=== PATIENT | male | born 1990 | race Two or more races ===

== ENCOUNTER → 2017-07-29 11:26 | Outpatient (CLI) | payer OTHER | END | disposition home or self-care (01) | LOC: LAB 11:26 | DX: J11.1 Influenza due to unidentified influenza virus with other respiratory manifestations (principal) ==

== ENCOUNTER → 2017-07-29 | Outpatient (CLI) | payer OTHER ==
[~2017-07-29] VITALS: Ht 152.4 cm; Wt 117.9 kg
[~2017-07-29] MED LIST: AFRIN SPRAY15 ML NS; AYR SALINE NA14.1 GM NASAL; CEFUROXIME500 MG PO; LEVSIN0.125 MG PO; OMEPRAZOLE20 MG PO; PREVACID30 MG PO; ZANTAC 7575 MG PO; ZANTAC300 MG PO
== END | disposition home or self-care (01) ==
LOC: PPHC 08:44
DX: R09.81 Nasal congestion (principal); J02.8 Acute pharyngitis due to other specified organisms; R51 Headache; R05 Cough

== ENCOUNTER 2017-07-31 08:30 | Outpatient (CLI) | payer OTHER | END 2017-07-31 08:37 | disposition home or self-care (01) | LOC: LAB 08:30 | DX: R50.9 Fever, unspecified (principal) ==

== ENCOUNTER → 2017-07-31 | Outpatient (CLI) | payer OTHER ==
[~2017-07-31] VITALS: Ht 152.4 cm; Wt 117.9 kg
== END | disposition home or self-care (01) ==
LOC: PPHC 09:22
DX: R05 Cough (principal)

== ENCOUNTER 2018-06-06 07:06 | Outpatient (CLI) | payer OTHER | END 2018-06-06 08:35 | disposition home or self-care (01) | LOC: LAB 07:06 | DX: Z01.818 Encounter for other preprocedural examination (principal); K81.1 Chronic cholecystitis ==

== ENCOUNTER 2018-07-01 06:37 | Day surgery (SDC) | payer OTHER ==
[2018-07-01] MEDS ORDERED: ULTRACET PO (13:02)
== END 2018-07-01 17:50 | disposition home or self-care (01) ==
LOC: CIR.AMB 06:37
DX: K80.10 Calculus of gallbladder with chronic cholecystitis without obstruction (principal)

== ENCOUNTER 2018-08-10 17:55 | Outpatient (CLI) | payer OTHER ==
[~2018-08-10 17:55] MED LIST changes: +ULTRACET PO
== END 2018-08-10 18:01 | disposition home or self-care (01) ==
LOC: LAB 17:55
DX: J10.00 Influenza due to other identified influenza virus with unspecified type of pneumonia (principal)

== ENCOUNTER 2019-06-20 21:30 | Emergency (ER) | payer OTHER ==
[~2019-06-20] VITALS: Ht 167.6 cm; Wt 127.0 kg
[2019-06-21] MEDS ORDERED: INTESTINEX680 M1 PO (05:01)
[2019-06-21] MEDS ORDERED: ZOFRAN8 MG PO (05:01)
[2019-06-21] MEDS ORDERED: PEPCID40 MG PO (05:01)
== END 2019-06-21 05:02 ==
LOC: ER 21:30
DX: K52.89 Other specified noninfective gastroenteritis and colitis (principal)

== ENCOUNTER → 2019-10-19 14:03 | Outpatient (CLI) | payer OTHER ==
[~2019-10-19 14:03] MED LIST changes: +INTESTINEX680 M1 PO; +PEPCID40 MG PO; +ZOFRAN8 MG PO
== END | disposition home or self-care (01) ==
LOC: RAD 14:03
DX: M79.671 Pain in right foot (principal)

== ENCOUNTER 2019-12-06 13:21 | Outpatient (CLI) | payer OTHER ==
[~2019-12-06] VITALS: Ht 152.4 cm; Wt 117.9 kg
== END 2019-12-06 14:30 | disposition home or self-care (01) ==
LOC: OFIC 805 13:21
PROVIDERS: ATTEND Otolaryngology
DX: J30.89 Other allergic rhinitis (principal); G47.33 Obstructive sleep apnea (adult) (pediatric)

== ENCOUNTER 2020-03-09 09:22 | Outpatient (CLI) | payer OTHER | END 2020-03-09 15:45 | disposition home or self-care (01) | LOC: PPH VACUNA 09:22 → LAB 09:22 | DX: Z23 Encounter for immunization (principal) ==

== ENCOUNTER → 2020-03-24 09:49 | Outpatient (CLI) | payer OTHER | END | disposition home or self-care (01) | LOC: RAD 09:49 → LAB 09:49 | PROVIDERS: ATTEND Internal Medicine Cardiovascular Disease | DX: I10 Essential (primary) hypertension (principal) ==

== ENCOUNTER → 2020-03-27 08:05 | Outpatient (CLI) | payer OTHER | END | disposition home or self-care (01) | LOC: LAB 08:05 | PROVIDERS: ATTEND Internal Medicine Cardiovascular Disease | DX: E03.8 Other specified hypothyroidism (principal); I10 Essential (primary) hypertension; E11.9 Type 2 diabetes mellitus without complications; Z20.828 Contact with and (suspected) exposure to other viral communicable diseases; E78.00 Pure hypercholesterolemia, unspecified; E78.01 Familial hypercholesterolemia ==

== ENCOUNTER 2020-06-27 09:12 | Emergency (ER) | payer OTHER ==
[~2020-06-27] VITALS: Ht 165.1 cm; Wt 136.1 kg
== END 2020-06-27 10:06 | disposition home or self-care (01) ==
LOC: ER 09:12
DX: L02.415 Cutaneous abscess of right lower limb (principal); B95.61 Methicillin susceptible Staphylococcus aureus infection as the cause of diseases classified elsewhere

== ENCOUNTER 2020-08-15 09:44 | Emergency (ER) | payer OTHER ==
[~2020-08-15] VITALS: Ht 167.6 cm; Wt 137.9 kg
[2020-08-15] MEDS ORDERED: KETO10TA2 PO (13:52)
[2020-08-15] MEDS ORDERED: ZANAFLEX4 M1 PO (13:52)
== END 2020-08-15 14:00 | disposition home or self-care (01) ==
LOC: ER 09:44
DX: R51.9 Headache, unspecified (principal); M54.2 Cervicalgia; Z03.818 Encounter for observation for suspected exposure to other biological agents ruled out

== ENCOUNTER → 2020-10-20 | Outpatient (CLI) | payer OTHER ==
[~2020-10-20] MED LIST changes: +KETO10TA2 PO; +ZANAFLEX4 M1 PO
== END | disposition home or self-care (01) ==
LOC: TOM 15:55
PROVIDERS: ATTEND Internal Medicine Cardiovascular Disease
DX: J32.8 Other chronic sinusitis (principal); G47.33 Obstructive sleep apnea (adult) (pediatric)

== ENCOUNTER 2020-10-21 10:25 | Outpatient (CLI) | payer OTHER | END 2020-10-21 10:27 | disposition home or self-care (01) | LOC: LAB 10:25 | PROVIDERS: ATTEND Internal Medicine Cardiovascular Disease | DX: I10 Essential (primary) hypertension (principal); E11.9 Type 2 diabetes mellitus without complications; E03.8 Other specified hypothyroidism; E78.2 Mixed hyperlipidemia; E55.9 Vitamin D deficiency, unspecified ==

== ENCOUNTER 2021-01-18 09:04 | Emergency (ER) | payer OTHER ==
[~2021-01-18] VITALS: Ht 167.6 cm; Wt 139.7 kg
[2021-01-18] MEDS ORDERED: KETO10TA2 PO (10:22)
[2021-01-18] MEDS ORDERED: CYCLOBENZAPRINE10 MG PO (10:22)
== END 2021-01-18 10:27 ==
LOC: ER 09:04 → EDBD 09:07 → EDSEX 09:07 → ER 10:27
DX: M54.16 Radiculopathy, lumbar region (principal)

== ENCOUNTER → 2021-01-29 09:02 | Outpatient (CLI) | payer OTHER ==
[~2021-01-29 09:02] MED LIST changes: +CYCLOBENZAPRINE10 MG PO
== END | disposition home or self-care (01) ==
LOC: EDSEX 09:02 → EDBD 09:02 → LAB 09:02
PROVIDERS: ATTEND General Practice
DX: Z11.3 Encounter for screening for infections with a predominantly sexual mode of transmission (principal)

== ENCOUNTER 2021-03-19 08:00 | Outpatient (CLI) | payer OTHER | END 2021-03-19 08:30 | disposition home or self-care (01) | LOC: PPH VACUNA 08:00 | PROVIDERS: ATTEND Emergency Medicine Pediatric Emergency Medicine | DX: Z23 Encounter for immunization (principal) ==

== ENCOUNTER 2021-12-12 15:09 | Outpatient (CLI) | payer OTHER | END 2021-12-12 15:18 | disposition home or self-care (01) | LOC: LAB 15:09 | PROVIDERS: ATTEND Emergency Medicine Pediatric Emergency Medicine | DX: L02.91 Cutaneous abscess, unspecified (principal) ==

== ENCOUNTER 2022-03-13 08:00 | Outpatient (CLI) | payer OTHER | END 2022-03-13 08:05 | disposition home or self-care (01) | LOC: PPH VACUNA 08:00 | PROVIDERS: ATTEND Emergency Medicine Pediatric Emergency Medicine | DX: Z23 Encounter for immunization (principal) ==

== ENCOUNTER 2022-04-15 03:00 | Emergency (ER) | payer OTHER ==
[~2022-04-15] VITALS: Ht 162.6 cm; Wt 122.9 kg
[2022-04-15] MEDS ORDERED: DOLOGESIC-DF 51 EACH PO (07:20)
[2022-04-15] MEDS ORDERED: ZYNCOF 20-400120 ML PO (07:20)
== END 2022-04-15 07:32 ==
LOC: ER 03:00
DX: U07.1 COVID-19 (principal); E11.9 Type 2 diabetes mellitus without complications

== ENCOUNTER 2022-06-25 09:30 | Emergency (ER) | payer OTHER ==
[~2022-06-25] VITALS: Ht 162.6 cm; Wt 121.6 kg
[~2022-06-25 09:30] MED LIST changes: +DOLOGESIC-DF 51 EACH PO; +JANUMET 50-1,01 EACH PO; +ZYNCOF 20-400120 ML PO
== END 2022-06-25 10:33 | disposition home or self-care (01) ==
LOC: ER 09:30
DX: H00.011 Hordeolum externum right upper eyelid (principal)

== ENCOUNTER 2023-02-20 07:28 | Outpatient (CLI) | payer OTHER | END 2023-02-20 07:31 | disposition home or self-care (01) | LOC: LAB 07:28 | PROVIDERS: ATTEND Internal Medicine Cardiovascular Disease | DX: J11.1 Influenza due to unidentified influenza virus with other respiratory manifestations (principal); A49.3 Mycoplasma infection, unspecified site; Z20.822 Contact with and (suspected) exposure to COVID-19 ==

== ENCOUNTER 2023-03-14 14:45 | Outpatient (CLI) | payer OTHER | END 2023-03-14 14:55 | disposition home or self-care (01) | LOC: PPH VACUNA 14:45 | PROVIDERS: ATTEND Emergency Medicine Pediatric Emergency Medicine | DX: Z23 Encounter for immunization (principal) | CPT/HCPCS: 90686; G0008 ==

== ENCOUNTER 2023-04-30 09:13 | Outpatient (CLI) | payer OTHER ==
[2023-04-30 09:50] LABS: HEMATOCRIT 41.4 % (39.0-48.0); HEMOGLOBIN 14.6 g/dL (13-16.00); MEAN CELL VOLUME 81.8 fL (80.0-100.00); MEAN CORPUSCULAR HEMOGLOBIN 28.8 pg (27.00-32.0); MEAN CORPUSCULAR HGB CONC 35.2 g/dl (32.0-36.0); PLATELET COUNT 162 K/uL (150-450); RED BLOOD COUNT 5.06 M/uL (4.00-6.00); RED CELL DISTRIBUTION WIDTH 13.7 % (11.5-14.5)
[2023-04-30 10:37] LABS: MANUAL PLATELET COUNT 214
[2023-04-30 11:07] LABS: MYCOPLASMA PNEUMONIAE IGM NON REACTIVE (NO REACTIVE)
== END 2023-04-30 09:22 | disposition home or self-care (01) ==
LOC: LAB 09:13
PROVIDERS: ATTEND Internal Medicine Cardiovascular Disease
DX: A49.3 Mycoplasma infection, unspecified site (principal); Z20.822 Contact with and (suspected) exposure to COVID-19

== ENCOUNTER 2023-05-19 07:17 | Emergency (ER) | payer OTHER ==
[~2023-05-19] VITALS: Ht 162.6 cm; Wt 127.0 kg
== END 2023-05-19 11:23 | disposition home or self-care (01) ==
LOC: ER 07:17
DX: N45.4 Abscess of epididymis or testis (principal)

== ENCOUNTER 2023-05-19 13:45 | Outpatient (CLI) | payer OTHER | END 2023-05-19 14:18 | disposition home or self-care (01) | LOC: LAB 13:45 | PROVIDERS: ATTEND Specialist | DX: L02.91 Cutaneous abscess, unspecified (principal) ==

== ENCOUNTER 2023-07-01 09:47 | Outpatient (CLI) | payer OTHER ==
[2023-07-01 10:56] LABS: PH,URINE 5.5 (5.0-8.0); URINE APPEARANCE Clear; URINE BILIRRUBIN Negative (NEGATIVE); URINE BLOOD Negative; URINE COLOR Yellow; URINE LEUKOCYTE Negative; URINE NITRATE Negative
[2023-07-01 11:01] LABS: URINE BACTERIA 51.6 uL (0.0-1933); URINE EPITHELIAL CELLS 8.6 uL (0.0-38.8); URINE WBC 7.5 uL (0.0-23.2)
[2023-07-01 11:08] LABS: HEMATOCRIT 44.1 % (39.0-48.0); HEMOGLOBIN 15.4 g/dL (13-16.00); MEAN CELL VOLUME 83.3 fL (80.0-100.00); MEAN CORPUSCULAR HEMOGLOBIN 29.1 pg (27.00-32.0); MEAN CORPUSCULAR HGB CONC 34.9 g/dl (32.0-36.0); PLATELET COUNT 162 K/uL (150-450); RED BLOOD COUNT 5.29 M/uL (4.00-6.00); RED CELL DISTRIBUTION WIDTH 13.3 % (11.5-14.5)
[2023-07-01 11:45] LABS: URINE GLUCOSE >=1000 MG/DL (NEGATIVE); URINE PROTEIN 100 (NEGATIVE); URINE RBC 1.5 uL (0.0-20.8)
[2023-07-01 11:51] LABS: ALBUMIN 3.5 gm/dL (3.4-5.0); BILIRUBIN TOTAL 0.61 mg/dL (0.3-1.2); CALCIUM 8.9 mg/dL (8.5-10.1); CHOL HDL RATIO 6.1 (0-5.0); CREATININE SERUM 0.94 mg/dL (0.70-1.30); POTASSIUM 3.99 mEq/L (3.5-5.1); T4 TOTAL 9.62 UG/DL (4.5-12.1); TOTAL PROTEIN 7.5 gm/dL (6.4-8.2); TSH 2.65 uIU/mL (0.358-3.74)
== END 2023-07-01 10:35 | disposition home or self-care (01) ==
LOC: LAB 09:47
PROVIDERS: ATTEND Internal Medicine Cardiovascular Disease
DX: I10 Essential (primary) hypertension (principal); E11.9 Type 2 diabetes mellitus without complications; E03.9 Hypothyroidism, unspecified; E78.2 Mixed hyperlipidemia; R10.9 Unspecified abdominal pain

== ENCOUNTER 2023-07-01 10:08 | Outpatient (CLI) | payer OTHER | END 2023-07-01 10:13 | disposition home or self-care (01) | LOC: SONOGRAMA 10:08 | PROVIDERS: ATTEND Internal Medicine Cardiovascular Disease | DX: R10.9 Unspecified abdominal pain (principal) ==

== ENCOUNTER 2024-03-15 09:43 | Outpatient (CLI) | payer OTHER | END 2024-03-15 23:00 | disposition home or self-care (01) | LOC: LAB 09:43 | DX: A64 Unspecified sexually transmitted disease (principal) ==

== ENCOUNTER 2024-06-18 11:08 | Outpatient (CLI) | payer OTHER | END 2024-06-18 11:15 | disposition home or self-care (01) | LOC: LAB 11:08 | PROVIDERS: ATTEND Specialist | DX: L02.91 Cutaneous abscess, unspecified (principal) ==

== ENCOUNTER 2024-12-08 14:55 | Outpatient (CLI) | payer OTHER | END 2024-12-08 15:07 | disposition home or self-care (01) | LOC: RAD 14:55 | PROVIDERS: ATTEND Orthopaedic Surgery | DX: M79.644 Pain in right finger(s) (principal); M79.641 Pain in right hand ==

== ENCOUNTER 2025-03-22 08:51 | Outpatient (CLI) | payer OTHER ==
[2025-03-22 09:28] LABS: BASO % 0.7 % (0.1-1.2); EOS # 0.21 (0.04-0.54); EOS % 2.6 % (0.7-7.0); LYMPH # 2.08 (1.18-3.74); LYMPH % 25.7 % (19.3-53.1); MEAN PLATELET VOLUME 12.20 fl (9.4-12.4); MONO # 0.53 (0.24-0.82); MONO % 6.6 % (4.7-12.5); NEUT # 5.16 (1.56-6.13); NEUT % 63.9 % (34.0-71.1); RED CELL DISTRIBUTION WIDTH 12.9 % (11.6-14.4)
[2025-03-22 09:56] LABS: URINE APPEARANCE Clear; URINE BILIRRUBIN Small (NEGATIVE); URINE BLOOD Negative; URINE COLOR Dark Yellow; URINE KETONE Trace (NEGATIVE); URINE LEUKOCYTE Trace; URINE NITRATE Negative; URINE UROBILINOGEN 1.0 E.U./dl
[2025-03-22 10:00] LABS: URINE BACTERIA 150.0 uL (0.0-1933); URINE CAST 1.75 uL (0.0-1.40); URINE EPITHELIAL CELLS 34.4 uL (0.0-38.8); URINE RBC 5.4 uL (0.0-20.8); URINE WBC 12.2 uL (0.0-23.2)
[2025-03-22 10:20] LABS: URINE GLUCOSE 500 MG/DL (NEGATIVE); URINE PROTEIN 300 (NEGATIVE)
[2025-03-22 10:22] LABS: URINE CRYSTALS MANY /HPF
[2025-03-22 10:25] LABS: ALT/SGPT 57.0 U/L (12-78); AST/SGOT 38.0 U/L (15-37); BILIRUBIN TOTAL 0.97 mg/dL (0.3-1.2); BUN CREA RATIO 16.0 (7.0-25.0); CHOL HDL RATIO 6.4 (0-5.0); CREATININE SERUM 0.9 mg/dL (0.70-1.30); GFR 96.59; GLOBULINA 4.2 G/DL (2.4-3.5); HDL 33.0 mg/dl (40-60); OSMOLALITY SERUM 286.0 MOSM/KG (275-295); T4 TOTAL 9.59 UG/DL (4.5-12.1); TSH 2.59 uIU/mL (0.358-3.74)
[2025-03-22 10:43] LABS: GLUCOSE FASTING 280.0 mg/dL (65-100); LDL 64.0 mg/dl (0-130); VLDL 114.0 (0-39)
== END 2025-03-22 15:37 | disposition home or self-care (01) ==
LOC: LAB 08:51
PROVIDERS: ATTEND Internal Medicine Cardiovascular Disease
DX: I10 Essential (primary) hypertension (principal); E11.9 Type 2 diabetes mellitus without complications; E03.9 Hypothyroidism, unspecified; E78.2 Mixed hyperlipidemia; E55.9 Vitamin D deficiency, unspecified; M81.0 Age-related osteoporosis without current pathological fracture

== ENCOUNTER 2025-03-22 14:36 | Outpatient (CLI) | payer OTHER ==
[2025-03-24 07:07] LABS: HEPATITIS A ANTIBODY IGG Negative (Negative); HEPATITIS C VIRUS ANTIBODY Non Reactive (Non Reactive)
== END 2025-03-22 15:35 | disposition home or self-care (01) ==
LOC: LAB 14:36
DX: A64 Unspecified sexually transmitted disease (principal)

== ENCOUNTER → 2025-05-04 | Outpatient (CLI) | payer OTHER | END | disposition home or self-care (01) | LOC: PPH VACUNA | PROVIDERS: ATTEND Emergency Medicine Pediatric Emergency Medicine | DX: Z23 Encounter for immunization (principal) ==